=== PATIENT | female | born 1970 | race Caucasian/White ===

== ENCOUNTER 2021-10-14 12:02 | Day surgery (SDC) | payer OTHER ==
[~2021-10-14] VITALS: Ht 165.1 cm; Wt 101.3 kg
[~2021-10-14 12:02] MED LIST: AMLO2.5T96 PO; APIX5TAB PO; BACL10TA PO; ESCI20TA87 PO; GABA-1181 PO; SENN-277 PO; SODIUM CHLORIDE 0.9% 1,000 ML IV ONE; TRAZ-257 PO
[2021-10-14] MEDS ORDERED: PROPOFOL 1% 20 ML VIAL IVP ONE (12:03)
[2021-10-14 12:34] LABS: COVID AG,FIA SOURCE NASOPHARYNGEAL
[2021-10-14] MEDS ORDERED: SODIUM CHLORIDE 0.9% 1,000 ML ONE (12:55)
== END 2021-10-14 15:45 | disposition home or self-care (01) ==
LOC: SURGERY 12:02
PROVIDERS: ATTEND Student in an Organized Health Care Education/Training Program
DX: Z09 Encounter for follow-up examination after completed treatment for conditions other than malignant neoplasm (principal); K64.8 Other hemorrhoids; K64.4 Residual hemorrhoidal skin tags; I10 Essential (primary) hypertension; Z79.899 Other long term (current) drug therapy; Z86.010 Personal history of colon polyps
CPT/HCPCS: 45378; 87426; C9803; J2704; J7030